=== PATIENT | female | born 1955 | race Caucasian/White ===

== ENCOUNTER → 2016-06-19 | Outpatient (CLI) | payer BC | END | disposition home or self-care (01) ==

== ENCOUNTER 2021-04-12 11:29 | Inpatient (IN) | payer BC, OTHER ==
[2021-04-12] MEDS ORDERED: SODIUM CHLORIDE 0.9% 500 ML 500 ML IV STA (12:16)
[2021-04-12] MEDS ORDERED: DILTIAZEM DRIP BOLUS FROM BAG 1 MG SOLN IV ONE ×2 (12:16→13:47)
[2021-04-12] MEDS ORDERED: HEPARIN SODIUM 1,000 UN/ML (10ML VL) IV ONE (12:16)
--- NOTE | 2021-04-12 12:22 | ED ---
General Adult HPI - General Chief complaint: Shortness of Breath Stated complaint: New Afib/sent by PCP Time Seen by Provider: 04/12/21 11:45 Source: patient, RN notes reviewed, old records reviewed Mode of arrival: wheelchair Limitations: no limitations - History of Present Illness Initial comments: This is a 66-year-old female who presents emergency department stating that she went in for a regular checkup and while she was in her doctor noticed that her heart was racing she didn't EKG and noticed that she was in new onset atrial fibrillation. Patient states that since about how weaned she's been having bouts of difficulty breathing or shortness of breath. Patient states it comes and goes. Patient denies any chest pain. Patient denies feeling any palpitations. Patient denies any fever chills or cough. Patient denies abdominal pain patient denies nausea vomiting diarrhea. - Related Data Home Medications Medication Instructions Recorded Confirmed Doxycycline Hyclate 100 mg PO BID 04/12/21 04/12/21 Fluconazole [Diflucan] 100 mg PO BID 04/12/21 04/12/21 Nystatin 100,000 Unit/gm Powd 1 applic TOPICAL BID 04/12/21 04/12/21 [Mycostatin Powder] Allergies Allergy/AdvReac Type Severity Reaction Status Date / Time cortisone Allergy Unknown Verified 04/12/21 13:17 Sulfa (Sulfonamide AdvReac Nausea Verified 04/12/21 13:17 Antibiotics) Review of Systems ROS Statement: Those systems with pertinent positive or pertinent negative responses have been documented in the HPI. ROS Other: All systems not noted in ROS Statement are negative. Past Medical History Past Medical History: Atrial Fibrillation History of Any Multi-Drug Resistant Organisms: None Reported Past Surgical History: No Surgical Hx Reported Past Psychological History: No Psychological Hx Reported Smoking Status: Never smoker Past Alcohol Use History: None Reported Past Drug Use History: None Reported General Exam - General Exam Comments Initial Comments: GENERAL: Patient is well-developed and well-nourished. Patient is nontoxic and well- hydrated and is in mild distress. ENT: Neck is soft and supple. No significant lymphadenopathy is noted. Oropharynx is clear. Moist mucous membranes. Neck has full range of motion without eliciting any pain. EYES: The sclera were anicteric and conjunctiva were pink and moist. Extraocular movements were intact and pupils were equal round and reactive to light. Eyelids were unremarkable. PULMONARY: Unlabored respirations. Good breath sounds bilaterally. No audible rales rhonchi or wheezing was noted. CARDIOVASCULAR: Patient is tachycardic and irregular at about 160 beats a minute ABDOMEN: Soft and nontender with normal bowel sounds. SKIN: Skin is clear with no lesions or rashes and otherwise unremarkable. NEUROLOGIC: Patient is alert and oriented x3. Cranial nerves II through XII are grossly intact. Motor and sensory are also intact. Normal speech, volume and content. Symmetrical smile. MUSCULOSKELETAL: Normal extremities with adequate strength and full range of motion. No lower extremity swelling or edema. No calf tenderness. LYMPHATICS: No significant lymphadenopathy is noted PSYCHIATRIC: Normal psychiatric evaluation. Limitations: no limitations Course Vital Signs 04/12/21 04/12/21 04/12/21 11:44 12:24 12:57 Temperature 98.7 F Pulse Rate 87 160 H 170 H Respiratory 18 20 20 Rate Blood Pressure 161/131 140/109 133/102 O2 Sat by Pulse 96 98 Oximetry 04/12/21 13:40 Temperature Pulse Rate 140 H Respiratory 20 Rate Blood Pressure 130/85 O2 Sat by Pulse Oximetry Medical Decision Making - Medical Decision Making EKG shows atrial fibrillation with rapid ventricular response at 177 bpm QRS is 98 QT interval is 238 QTC is 408. Patient's EKG shows no ST segment elevation or depression. I started the patient on Cardizem after I gave the patient a Cardizem bolus. Patient's heart rate continued to be about 170 systolic gave a second bolus. Patient's heart rate came down nicely as did her blood pressure. Patient's d-dimer was elevated so we did a CAT scan to rule out PE. I spoke with Dr. Milian agreed to admit the patient admitted the patient I consulted cardiology.patient was also started on heparin and continued on heparin upstairs. - Lab Data Result diagrams: 04/12/21 12:24 04/12/21 12:24 Lab Results 04/12/21 04/12/21 04/12/21 Range/Units 12:24 12:24 12:24 WBC 7.8 (3.8-10.6) k/uL RBC 4.62 (3.80-5.40) m/uL Hgb 13.6 (11.4-16.0) gm/dL Hct 41.9 (34.0-46.0) % MCV 90.7 (80.0-100.0) fL MCH 29.4 (25.0-35.0) pg MCHC 32.4 (31.0-37.0) g/dL RDW 13.1 (11.5-15.5) % Plt Count 276 (150-450) k/uL MPV 8.9 Neutrophils % 71 % Lymphocytes % 22 % Monocytes % 4 % Eosinophils % 1 % Basophils % 0 % Neutrophils # 5.6 (1.3-7.7) k/uL Lymphocytes # 1.7 (1.0-4.8) k/uL Monocytes # 0.3 (0-1.0) k/uL Eosinophils # 0.1 (0-0.7) k/uL Basophils # 0.0 (0-0.2) k/uL PT 11.4 (9.0-12.0) sec INR 1.1 (<1.2) APTT 25.8 (22.0-30.0) sec D-Dimer 1.00 H (<0.60) mg/L FEU Sodium 139 (137-145) mmol/L Potassium 4.5 (3.5-5.1) mmol/L Chloride 108 H (98-107) mmol/L Carbon Dioxide 21 L (22-30) mmol/L Anion Gap 10 mmol/L BUN 16 (7-17) mg/dL Creatinine 0.69 (0.52-1.04) mg/dL Est GFR (CKD-EPI)AfAm >90 (>60 ml/min/1.73 sqM) Est GFR (CKD-EPI)NonAf >90 (>60 ml/min/1.73 sqM) Glucose 142 H (74-99) mg/dL Calcium 9.8 (8.4-10.2) mg/dL Magnesium 1.9 (1.6-2.3) mg/dL Total Bilirubin 0.5 (0.2-1.3) mg/dL AST 41 H (14-36) U/L ALT 55 H (4-34) U/L Alkaline Phosphatase 115 (38-126) U/L Total Protein 7.0 (6.3-8.2) g/dL Albumin 4.0 (3.5-5.0) g/dL TSH 0.330 L (0.465-4.680) mIU/L Critical Care Time Critical Care Time: Yes Total Critical Care Time: 35 Disposition Clinical Impression: Atrial fibrillation with rapid ventricular response Disposition: ADMITTED IP TO THIS HOSP Referrals: Shaniqua Parra MD [Primary Care Provider] - 1-2 days Time of Disposition: 14:16
[2021-04-12 12:43] LABS: Basophils % (A) 0 %; Eosinophils # (A) 0.1 k/uL (0-0.7); Eosinophils % (A) 1 %; HCT 41.9 % (34.0-46.0); HGB 13.6 gm/dL (11.4-16.0); Lymphocytes # (A) 1.7 k/uL (1.0-4.8); Lymphocytes % (A) 22 %; MCH 29.4 pg (25.0-35.0); MCHC 32.4 g/dL (31.0-37.0); MCV 90.7 fL (80.0-100.0); Mean Platelet Volume 8.9; Monocytes # (A) 0.3 k/uL (0-1.0); Monocytes % (A) 4 %; Neutrophils # (A) 5.6 k/uL (1.3-7.7); Neutrophils % (A) 71 %; Platelet Count 276 k/uL (150-450); RBC 4.62 m/uL (3.80-5.40); RDW 13.1 % (11.5-15.5); WBC 7.8 k/uL (3.8-10.6)
--- NOTE | 2021-04-12 12:43 | XR ---
EXAMINATION TYPE: XR chest 2V DATE OF EXAM: 04/12/2021 COMPARISON: Chest x-ray 06/05/2013 HISTORY: Dysrhythmia TECHNIQUE: Frontal and lateral views of the chest are obtained. FINDINGS: Patchy density is present in the bilateral lungs. Cardiac mediastinal silhouette shows a s imilar appearance accounting for expiratory technique, rotation. There is no evident pneumothorax or pleural effusion. There are overlying leads present. Thoracic spondylosis is present. Question some p rominence in interstitium. IMPRESSION: Correlate for possible interstitial edema or pneumonia. Expiratory rotated exam. Follow- up suggested.
[2021-04-12] MEDS: HEPARIN SOD,PORK IN 0.45% NACL 25,000 UNIT in 0.45% NACL 1 250ML.BAG IV SCH (12:51)
[2021-04-12] MEDS: DILTIAZEM 125 MG in SODIUM CHLORIDE 0.9% 100 ML IV SCH (12:56)
[2021-04-12 13:11] LABS: INR 1.1 (<1.2); Partial Thromboplastin Time 25.8 sec (22.0-30.0); Prothrombin Time 11.4 sec (9.0-12.0)
[2021-04-12 13:35] LABS: ALT 55 U/L (4-34); AST 41 U/L (14-36); African American GFR (CKD) >90 (>60 ml/min/1.73 sqM); Alkaline Phosphatase 115 U/L (38-126); Anion Gap 10 mmol/L; Blood Urea Nitrogen 16 mg/dL (7-17); Calcium 9.8 mg/dL (8.4-10.2); Carbon Dioxide 21 mmol/L (22-30); Chloride 108 mmol/L (98-107); Glucose 142 mg/dL (74-99); Magnesium 1.9 mg/dL (1.6-2.3); Non-African American GFR(CKD) >90 (>60 ml/min/1.73 sqM); Potassium 4.5 mmol/L (3.5-5.1); Sodium 139 mmol/L (137-145); Total Bilirubin 0.5 mg/dL (0.2-1.3)
[2021-04-12] MEDS ORDERED: NITROGLYCERIN SL TABS 0.4 MG TAB SUBLINGUAL PRN (14:17)
--- NOTE | 2021-04-12 14:58 | CT ---
EXAMINATION TYPE: CT chest angio for PE DATE OF EXAM: 04/12/2021 COMPARISON: Chest x-ray 04/12/2020 HISTORY: Elevated d-dimer, tachycardia CT DLP: 708.7 mGycm Automated exposure control for dose reduction was used. CONTRAST: CT Chest for pulmonary embolism performed with with IV Contrast, patient injected with 100 mL of Isov ue 370. FINDINGS: LUNGS: There is a coarsened interstitium. There is scattered areas of groundglass opacification. Bila teral pleural effusions are slightly. Additional areas of subsegmental consolidation noted. MEDIASTINUM: There is satisfactory enhancement of the pulmonary artery and its branches, there is no CT evidence for pulmonary embolism. There is pathologic size lymph nodes within the hilum and subcar inal region measuring short axis greater than a centimeter.. The heart is markedly enlarged. Aorta of normal caliber. Trace of pericardial fluid noted. Peribronchial wall thickening. OTHER: Hypertrophic and degenerative change of the spine. Small hiatal hernia. Right-sided partially calcified thyroid nodule. IMPRESSION: 1. Cardiomegaly with coarsened interstitium and ground glass opacification. Small bilateral effusions correlate for mild CHF versus pneumonitis. 2. No diagnostic evidence of pulmonary embolism 3. Peribronchial wall thickening noted bilaterally correlate for bronchitis or interstitial pneumonit is. 4. Nonspecific lymphadenopathy 5. Right-sided thyroid nodules short-term follow-up ultrasound recommended to thyroid.
[2021-04-12 16:27] LABS: Amphetamine Screen,Urine Not Detected (NotDetected); Barbiturate Screen,Urine Not Detected (NotDetected); Benzodiazepines Screen,Urine Not Detected (NotDetected); Cocaine Screen,Urine Not Detected (NotDetected); Methadone Screen, Urine Not Detected (NotDetected); Opiate Screen,Urine Not Detected (NotDetected); Oxycodone Screen, Urine Not Detected (NotDetected); Phencyclidine Screen,Urine Not Detected (NotDetected); Tricyclic Antidepressant,Urine Not Detected (NotDetected); Urn Cannabinoid Scrn Not Detected (NotDetected)
[2021-04-13] MEDS ORDERED: METOPROLOL TARTRATE 50 MG TAB PO SCH (09:00)
[2021-04-13] MEDS ORDERED: ASPIRIN 325 MG TAB PO SCH (09:00)
[2021-04-13] MEDS: HEPARIN SOD,PORK IN 0.45% NACL 25,000 UNIT in 0.45% NACL 1 250ML.BAG IV SCH (09:43)
[2021-04-13 09:47] LABS: Chol/HDL Ratio 3.38 Ratio; VLDL Calculation 16.18 mg/dL (5.00-40.00)
[2021-04-13] MEDS ORDERED: METOPROLOL TARTRATE 25 MG TAB PO STA (10:12)
--- NOTE | 2021-04-13 11:01 | ECHOF ---
Referral Reason:LV function MEASUREMENTS -------- HEIGHT: 162.6 cm WEIGHT: 119.3 kg BP: 131/96 RVIDd: 4.1 cm (< 3.3) IVSd: 1.4 cm (0.6 - 1.1) LVIDd: 5.3 cm (3.9 - 5.3) LVPWd: 1.3 cm (0.6 - 1.1) IVSs: 1.5 cm LVIDs: 3.9 cm LVPWs: 2.0 cm LAESV Index (A-L): 29.88 ml/m Ao Diam: 2.6 cm (2.0 - 3.7) AV Cusp: 2.0 cm (1.5 - 2.6) LA Diam: 5.5 cm (2.7 - 3.8) RAP: 5.00 mmHg RVSP: 42.19 mmHg FINDINGS -------- Atrial fibrillation with RVR. This was a technically difficult study with suboptimal views. The left ventricular size is normal. There is moderate concentric left ventricular hypertrophy. O verall left ventricular systolic function is mildly impaired with, an EF between 45 - 50 %. Left ve ntricular fillimg pressure cannot be estimated due to Atrial fibrillation. The right ventricle is moderately enlarged. The left atrium is markedly dilated. The right atrium is mildly enlarged. 2.0mg of Lumason was utilized for enhancement of images Interatrial and interventricular septum intact. The aortic valve is trileaflet and appears structurally normal. There is no evidence of aortic regu rgitation. There is no evidence of aortic stenosis. Ltvl-[id number]-dvexlqcy mitral regurgitation is present. Moderate to severe tricuspid regurgitation present. There is moderate pulmonary hypertension. The right ventricular systolic pressure, as measured by Doppler, is 42.19mmHg. Trace/mild (physiologic) pulmonic regurgitation. The aortic root size is normal. IVC Not well visulized. There is no pericardial effusion. CONCLUSIONS -------- 1. Atrial fibrillation. 2. The left ventricular size is normal. 3. There is moderate concentric left ventricular hypertrophy. 4. Overall left ventricular systolic function is mildly impaired with, an EF between 45 - 50 %. 5. Left ventricular fillimg pressure cannot be estimated due to Atrial fibrillation. 6. The right ventricle is moderately enlarged. 7. The left atrium is markedly dilated. 8. The right atrium is mildly enlarged. 9. Agxn-cx-lojrcdjx mitral regurgitation is present. 10. Moderate to severe tricuspid regurgitation present. 11. There is moderate pulmonary hypertension. 12. The right ventricular systolic pressure, as measured by Doppler, is 42.19mmHg. 13. Trace/mild (physiologic) pulmonic regurgitation. RAND BUTTER: Lola Carpenter RDCS
--- NOTE | 2021-04-13 11:05 | P.CRDCN ---
History of Present Illness History of present illness: HISTORY OF PRESENTING ILLNESS This is a pleasant 66-year-old female with history of COVID-19 infection August 2019 she recovered and was not hospitalized, (has not been vaccinated), tachycardia about 40 years ago that resolved on its own. 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 We have been asked to see in consultation for new onset atrial fibrillation with rapid ventricular response. Patient presents to the emergency department after seeing her PCP for worsening shortness of breath and was found to be tachycardic. Patient was told to go to the emergency department for further evaluation. She endorses symptoms of worsening shortness of breath. She states her symptoms started around 03/26/21. She states she was getting shortness of breath with any activity, this progressed to her feeling like she could not do any activity without resting. She also endorses bilateral lower extremity edema chest improved. She denies any chest pain, palpitations, lower extremity edema, fatigue, weakness, lightheadedness, syncope or pre-syncope. Denies symptoms of orthopnea or PND. Patient denies history of hypertension, diabetes, stroke, AR, hyperlipidemia, coronary disease. She denies any family history of heart disease. She denies any use of tobacco, alcohol or illicit drug use. She states she was recently started on antibiotics for a rash. DIAGNOSTICS EKG reveals atrial fibrillation with rapid ventricular response, heart rate 177, right axis deviation, incomplete right bundle branch block. No prior EKG to compare. Telemetry tracings indicate atrial fibrillation with uncontrolled ventricular rates, heart rate [id number] Chest xray patchy density in the bilateral lungs. CT chest revealed no pulmonary embolism, cardiomegaly with groundglass opacification. Small bilateral effusions. Right-sided thyroid nodules. Laboratory reviewed, CBC unremarkable, d-dimer 1.0, sodium 139, potassium 4.5, BUN 16, sonogram 0.6, AST 41, PLT 55, troponin negative 3, TSH 0.3, urine tox negative, COVID-19 PCR negative Current home medications include nystatin powder, fluconazole 100mg BID, doxycycline REVIEW OF SYSTEMS At the time of my exam: CONSTITUTIONAL: Denies fever or chills. CARDIOVASCULAR: +shortness of breath Denies shortness of breath, orthopnea, PND or palpitations. RESPIRATORY: Denies cough. GASTROINTESTINAL: Denies abdominal pain, diarrhea, constipation, nausea or vomiting. MUSCULOSKELETAL: Denies myalgias. NEUROLOGIC: Denies numbness, tingling, headacbe or weakness. ENDOCRINE: Denies fatigue, weight change, polydipsia or polyurina. GENITOURINARY: Denies burning, hematuria or urgency with micturation. HEMATOLOGIC: Denies history of anemia or bleeding. PHYSICAL EXAMINATION Vitals BP 131/96, HR 124, afebrile, 98% on room air CONSTITUTIONAL: No apparent distress. HEENT: Head is normocephalic. Pupils are equal, round. Sclerae anicteric. Mucous membranes of the mouth are moist. No JVD. No carotid bruit. CHEST EXAMINATION: Lungs are clear to auscultation. No chest wall tenderness is noted on palpation or with deep breathing. HEART EXAMINATION: Tachycardic Irregular rate and rhythm. S1, S2 heard. No murmurs, gallops or rub. ABDOMEN: Soft, nontender. Positive bowel sounds. EXTREMITIES: 2+ peripheral pulses, trace bilateral lower extremity non-pitting edema and no calf tenderness. SKIN: warm , dry NEUROLOGIC EXAMINATION: Patient is awake, alert and oriented x3. ASSESSMENT New onset paroxysmal atrial fibrillation with RVR -[id number] score 1 History of COVID-19 in August 2019 PLAN -Will start metoprolol tartarte 75mg TID -Wean IV Cardizem -Stop IV heparin, Start Eliquis 5mg BID. Case management consult for Eliquis coverage. Patient's Eliquis is covered for case management with $0 copay. -Continue cardiac telemetry -TSH low, will check Free T4 and Free T3 -Lipid panel reviewed, emphasis on heart healthy lifestyle to reduce risk f actors -Obtain 2D echocardiogram -Further recommendations based on clinical course Nurse Practitioner note has been reviewed, I agree with a documented findings and plan of care. Patient was seen and examined. Past Medical History Past Medical History: Atrial Fibrillation History of Any Multi-Drug Resistant Organisms: None Reported Past Surgical History: No Surgical Hx Reported Past Psychological History: No Psychological Hx Reported Smoking Status: Never smoker Past Alcohol Use History: None Reported Past Drug Use History: None Reported Medications and Allergies Home Medications Medication Instructions Recorded Confirmed Type Doxycycline Hyclate 100 mg PO BID 04/12/21 04/12/21 History Fluconazole [Diflucan] 100 mg PO BID 04/12/21 04/12/21 History Nystatin 100,000 Unit/gm Powd 1 applic TOPICAL BID 04/12/21 04/12/21 History [Mycostatin Powder] Apixaban [Eliquis] 5 mg PO BID 30 Days #60 tab 04/13/21 Rx Allergies Allergy/AdvReac Type Severity Reaction Status Date / Time cortisone Allergy Unknown Verified 04/12/21 13:17 Sulfa (Sulfonamide AdvReac Nausea Verified 04/12/21 13:17 Antibiotics) Physical Exam Vitals: Vital Signs Temp Pulse Pulse Resp BP BP Pulse Ox 04/13/21 03:23 124 H 19 131/96 98 04/13/21 00:00 114 H 19 118/98 98 04/12/21 19:50 98.1 F 134 H 20 107/73 97 04/12/21 17:51 120 H 18 134/64 97 04/12/21 15:47 125 H 16 126/63 96 04/12/21 13:40 140 H 20 130/85 04/12/21 12:57 170 H 20 133/102 04/12/21 12:24 160 H 20 140/109 98 04/12/21 11:44 98.7 F 87 18 161/131 96 Intake and Output 04/12/21 04/13/21 04/13/21 22:59 06:59 14:59 Intake Total 158.016 118.801 Balance 158.016 118.801 Intake: Intake, IV Titration 158.016 118.801 Amount Diltiazem 125 mg In 71.875 20.375 Sodium Chloride 0.9% 100 ml @ 5 MG/HR 5 mls/hr IV .Q24H [facility] Rx#:[id number] Heparin Sod,Pork in 0.45% 86.141 98.426 NaCl 25,000 unit In 0.45 % NaCl 1 250ml.bag @ 8.38 UNITS/KG/HR 9.997 mls/hr IV .Q24H [facility] Rx#: [id number] Other: # Voids 3 Weight 119.295 kg Results 04/12/21 12:24 04/12/21 12:24 Cardiac Enzymes 04/12/21 04/12/21 04/12/21 Range/Units 12:24 12:24 17:07 AST 41 H (14-36) U/L Troponin I <0.012 0.014 (0.000-0.034) ng/mL 04/12/21 Range/Units 19:30 AST (14-36) U/L Troponin I 0.018 (0.000-0.034) ng/mL Coagulation 04/12/21 04/12/21 04/13/21 Range/Units 12:24 20:10 03:34 PT 11.4 (9.0-12.0) sec APTT 25.8 27.8 25.8 (22.0-30.0) sec CBC 04/12/21 Range/Units 12:24 WBC 7.8 (3.8-10.6) k/uL RBC 4.62 (3.80-5.40) m/uL Hgb 13.6 (11.4-16.0) gm/dL Hct 41.9 (34.0-46.0) % Plt Count 276 (150-450) k/uL Comprehensive Metabolic Panel 04/12/21 Range/Units 12:24 Sodium 139 (137-145) mmol/L Potassium 4.5 (3.5-5.1) mmol/L Chloride 108 H (98-107) mmol/L Carbon Dioxide 21 L (22-30) mmol/L BUN 16 (7-17) mg/dL Creatinine 0.69 (0.52-1.04) mg/dL Glucose 142 H (74-99) mg/dL Calcium 9.8 (8.4-10.2) mg/dL AST 41 H (14-36) U/L ALT 55 H (4-34) U/L Alkaline Phosphatase 115 (38-126) U/L Total Protein 7.0 (6.3-8.2) g/dL Albumin 4.0 (3.5-5.0) g/dL Current Medications Generic Name Dose Route Start Last Admin Trade Name Freq PRN Reason Stop Dose Admin Aspirin 325 mg 04/13/21 09:00 Aspirin 325 Mg Tab PO DAILY [facility] Diltiazem HCl 125 mg/ Sodium 125 mls @ 5 mls/hr 04/12/21 12:30 04/13/21 00:43 Chloride IV 10 mg/hr .Q24H [facility] 10 mls/hr Infusion 5 MG/HR Heparin Sodium/Sodium Chloride 250 mls @ 9.997 mls/hr 04/12/21 12:30 04/13/21 04:43 25,000 unit/ Sodium Chloride IV 13.89 units/kg/hr .Q24H [facility] 16.576 mls/hr Titration Protocol 8.38 UNITS/KG/HR Nitroglycerin 0.4 mg 04/12/21 14:17 Nitroglycerin Sl Tabs 0.4 Mg Tab SUBLINGUAL Q5M PRN Chest Pain Intake and Output 04/12/21 04/13/21 04/13/21 22:59 06:59 14:59 Intake Total 158.016 118.801 Balance 158.016 118.801 Intake: Intake, IV Titration 158.016 118.801 Amount Diltiazem 125 mg In 71.875 20.375 Sodium Chloride 0.9% 100 ml @ 5 MG/HR 5 mls/hr IV .Q24H [facility] Rx#:[id number] Heparin Sod,Pork in 0.45% 86.141 98.426 NaCl 25,000 unit In 0.45 % NaCl 1 250ml.bag @ 8.38 UNITS/KG/HR 9.997 mls/hr IV .Q24H [facility] Rx#: [id number] Other: # Voids 3 Weight 119.295 kg 04/12/21 12:24 04/12/21 12:24
[2021-04-13] MEDS: APIXABAN 5 MG TAB PO SCH ×2 (12:05→20:15)
[2021-04-13 13:01] VITALS: RESP 18
[2021-04-13] MEDS: METOPROLOL TARTRATE 25 MG TAB PO SCH ×2 (17:50→20:15)
[2021-04-13] MEDS: DILTIAZEM 125 MG in SODIUM CHLORIDE 0.9% 100 ML IV SCH (20:16)
[2021-04-13] MEDS ORDERED: METOPROLOL TARTRATE 25 MG TAB PO SCH (21:00)
--- NOTE | 2021-04-13 23:37 | P.HPIM ---
History of Present Illness H&P Date: 04/13/21 Chief Complaint: shortness of breath Evelin Tompkins is a 66 yo F with PMH of COVID infection last year who presented to the ED at the recommendation of her PCP after she was noted to be in A fib. She states she had been feeling progressively more short of breath over the past few weeks as well as lower energy levels. She endorses orthopnea, denies cough, chest pain. She brought this up to her PCP and had an EKG done which showed A fib so was recommended to come here. On presentation she was tachycardic, EKG with A fib with RVR. Review of Systems All systems: negative Constitutional: Reports malaise, Denies chills, Denies fever Eyes: denies blurred vision, denies pain Ears, nose, mouth and throat: Denies headache, Denies sore throat Cardiovascular: Reports dyspnea on exertion, Reports palpitations, Denies chest pain, Denies shortness of breath Respiratory: Denies cough Gastrointestinal: Denies abdominal pain, Denies diarrhea, Denies nausea, Denies vomiting Genitourinary: Denies dysuria, Denies hematuria Musculoskeletal: Denies myalgias Integumentary: Denies pruritus, Denies rash Neurological: Denies numbness, Denies weakness Psychiatric: Denies anxiety, Denies depression Endocrine: Denies fatigue, Denies weight change Past Medical History Past Medical History: Atrial Fibrillation History of Any Multi-Drug Resistant Organisms: None Reported Past Surgical History: No Surgical Hx Reported Past Psychological History: No Psychological Hx Reported Smoking Status: Never smoker Past Alcohol Use History: None Reported Past Drug Use History: None Reported Medications and Allergies Home Medications Medication Instructions Recorded Confirmed Type Doxycycline Hyclate 100 mg PO BID 04/12/21 04/12/21 History Fluconazole [Diflucan] 100 mg PO BID 04/12/21 04/12/21 History Nystatin 100,000 Unit/gm Powd 1 applic TOPICAL BID 04/12/21 04/12/21 History [Mycostatin Powder] Apixaban [Eliquis] 5 mg PO BID 30 Days #60 tab 04/13/21 Rx Allergies Allergy/AdvReac Type Severity Reaction Status Date / Time cortisone Allergy Unknown Verified 04/12/21 13:17 Sulfa (Sulfonamide AdvReac Nausea Verified 04/12/21 13:17 Antibiotics) Physical Exam Vitals: Vital Signs Temp Pulse Pulse Resp BP BP Pulse Ox 04/13/21 23:17 98.1 F 79 18 126/85 97 04/13/21 20:00 98.3 F 94 18 129/75 94 L 04/13/21 16:00 120 H 18 144/77 95 04/13/21 14:00 124 H 18 04/13/21 13:01 98.0 F 99 18 101/65 96 04/13/21 03:23 124 H 19 131/96 98 04/13/21 00:00 114 H 19 118/98 98 Intake and Output 04/13/21 04/13/21 04/14/21 14:59 22:59 06:59 Intake Total 93.933 16.5 Balance 93.933 16.5 Intake: Intake, IV Titration 93.933 16.5 Amount Diltiazem 125 mg In 28.5 16.5 Sodium Chloride 0.9% 100 ml @ 5 MG/HR 5 mls/hr IV .Q24H [facility] Rx#:[id number] Heparin Sod,Pork in 0.45% 65.433 NaCl 25,000 unit In 0.45 % NaCl 1 250ml.bag @ 8.38 UNITS/KG/HR 9.997 mls/hr IV .Q24H [facility] Rx#: [id number] Other: Voiding Method Bedside Commode # Voids 2 # Bowel Movements 2 General: well nourished, well developed, NAD. Vitals reviewed Eyes: PERRL, EOMI, conjunctiva normal HENT: normocephalic, mucus membranes moist Neck: supple, no JVD Lungs: normal respiratory effort, no wheezes or rales CV: Tachycardic, irregular. Peripheral pulses 2+ Abdomen: soft, nondistended, no organomegaly Lymph: no cervical or axillary LAD Skin: warm and dry. Neuro: A&Ox3, normal mood and affect Results CBC & Chem 7: 04/12/21 12:24 04/12/21 12:24 Labs: Abnormal Lab Results - Last 24 Hours (Table) 04/13/21 Range/Units 10:38 APTT 32.8 H (22.0-30.0) sec Thrombosis Risk Factor Assmnt - Choose All That Apply Any of the Below Risk Factors Present?: Yes Each Factor Represents 1 point: Obesity (BMI >25) Other Risk Factors: Yes Each Risk Factor Represents 2 Points: Age 61-74 years Other congenital or acquired thrombophilia - If yes, enter type in comment: No Thrombosis Risk Factor Assessment Total Risk Factor Score: 3 Thrombosis Risk Factor Assessment Level: Moderate Risk Assessment and Plan Plan: 1. A fib with RVR. Admit, cardiology consult. start eliquis, metoprolol. Echo per cardiology
[2021-04-14] MEDS: APIXABAN 5 MG TAB PO SCH (08:45)
[2021-04-14] MEDS: METOPROLOL TARTRATE 25 MG TAB PO SCH (08:45)
[2021-04-14 09:51] VITALS: TEMP 98.5
--- NOTE | 2021-04-14 10:48 | P.PN ---
Subjective Progress Note Date: 04/14/21 Evelin Tompkins is a 66 yo F with PMH of COVID infection last year who presented to the ED at the recommendation of her PCP after she was noted to be in A fib. She states she had been feeling progressively more short of breath over the past few weeks as well as lower energy levels. She endorses orthopnea, denies cough, chest pain. She brought this up to her PCP and had an EKG done which showed A fib so was recommended to come here. On presentation she was tachycardic, EKG with A fib with RVR. 04/14/2021 Recently weaned off of Cardizem drip, beta lorie initiated, anticoagulated on Eliquis .telemetry reporting A. fib,CVR, heart rates 90s to low 100s. Echo reported mildly impaired LV function, EF 45-50% mild to moderate mitral regurgitation, moderate to severe tricuspid regurgitation, moderate pulm onary hypertension. Feels significantly better, denies any chest pain palpitations or shortness of breath. Ambulating in room, denies any lightheadedness dizziness or focal deficits. Objective - Vital Signs Vital signs: Vital Signs Temp 97.9 F 04/14/21 03:06 Pulse 92 04/14/21 03:06 Resp 18 04/14/21 03:06 BP 124/80 04/14/21 03:06 Pulse Ox 100 04/14/21 03:06 Intake & Output 04/13/21 04/14/21 04/14/21 18:59 06:59 18:59 Intake Total 93.933 16.5 Balance 93.933 16.5 Weight 121.4 kg Intake: Intake, IV Titration 93.933 16.5 Amount Diltiazem 125 mg In 28.5 16.5 Sodium Chloride 0.9% 100 ml @ 5 MG/HR 5 mls/hr IV .Q24H NIURKA Rx#:[id number] Heparin Sod,Pork in 0.45% 65.433 NaCl 25,000 unit In 0.45 % NaCl 1 250ml.bag @ 8.38 UNITS/KG/HR 9.997 mls/hr IV .Q24H NIURKA Rx#: [id number] Other: Voiding Method Bedside Commode # Voids 2 # Bowel Movements 2 - Exam General: Sitting up in bed, NAD. Vitals reviewed Eyes: PERRL, EOMI, conjunctiva normal HENT: normocephalic, mucus membranes moist Neck: supple, no JVD Lungs: normal respiratory effort, no wheezes or rales CV: irregular, mild tachycardia. Peripheral pulses 2+ Abdomen: soft, nondistended, no organomegaly Skin: warm and dry. Neuro: A&Ox3, no focal deficits. - Labs CBC & Chem 7: 04/12/21 12:24 04/12/21 12:24 Labs: Abnormal Lab Results - Last 24 Hours (Table) 04/13/21 Range/Units 10:38 APTT 32.8 H (22.0-30.0) sec Assessment and Plan Assessment: Afib with RVR, currently controlled ventricular rate Ivcr-hl-jlhztqnc mitral regurgitation Moderate to severe tricuspid regurgitation Moderate pulmonary hypertension Plan: Continue on current medication regime ,monitoring and symptomatic treatment. Maintained on beta lorie with Eliquis initiated for anticoa gulation. Case management verifying Eliquis coverage. Discharge planning in progress pending final DC recommendations and clearance per cardiology. The impression and plan of care has been dictated as directed. : I performed a history and examination of this patient, discussed the same with the dictator. I agree with the dictator's note ,documented as a scribe. Any additional findings or plans will be noted.
--- NOTE | 2021-04-14 11:44 | P.DS ---
Providers Date of admission: 04/12/21 14:17 Expected date of discharge: 04/14/21 Attending physician: Eladio Davison MD Consults: 04/12/21 14:17 Consult Physician Urgent Consulting Provider: [facility] Consult Reason/Comments: A. fib with rapid ventricular response Do you want consulting provider notified?: Yes Primary care physician: Shaniqu[facility] Course: Final Diagnoses: Afib with RVR, currently controlled ventricular rate Rjgi-el-zuzjignb mitral regurgitation Moderate to severe tricuspid regurgitation Moderate pulmonary hypertension Hospital course:Evelin Tompkins is a 66 yo F with PMH of COVID infection last year who presented to the ED at the recommendation of her PCP after she was noted to be in A fib. She states she had been feeling progressively more short of breath over the past few weeks as well as lower energy levels. She endorses orthopnea, denies cough, chest pain. She brought this up to her PCP and had an EKG done which showed A fib so was recommended to come here. On presentation she was tachycardic, EKG with A fib with RVR. 04/14/2021 Recently weaned off of Cardizem drip, beta lorie initiated, anticoagulated on Eliquis .telemetry reporting A. fib,CVR, heart rates 90s to low 100s. Echo reported mildly impaired LV function, EF 45-50% mild to moderate mitral regurgitation, moderate to severe tricuspid regurgitation, moderate pulmonary hypertension. Feels significantly better, denies any chest pain palpitations or shortness of breath. Ambulating in room, denies any lightheadedness dizziness or focal deficits. significant clinical improvement. Cleared by cardiology for discharge. Low- sodium/heart healthy diet reinforced. Patient will be discharged home today in a stable condition with guarded prognosis. The impression and plan of care has been dictated as directed. : I performed a history and examination of this patient, discussed the same with the dictator. I agree with the dictator's note ,documented as a scribe. Any additional findings or plans will be noted. Patient Condition at Discharge: Stable Plan - Discharge Summary Discharge Rx Participant: No New Discharge Prescriptions: New Apixaban [Eliquis] 5 mg PO BID 30 Days #60 tab Famotidine [Pepcid] 20 mg PO BID #60 tablet Metoprolol Tartrate [Lopressor] 75 mg PO TID 30 Days #270 tab Continue Nystatin 100,000 Unit/gm Powd [Mycostatin Powder] 1 applic TOPICAL BID Discontinued Doxycycline Hyclate 100 mg PO BID Fluconazole [Diflucan] 100 mg PO BID Discharge Medication List Nystatin 100,000 Unit/gm Powd [Mycostatin Powder] 1 applic TOPICAL BID 04/12/21 [History] Apixaban [Eliquis] 5 mg PO BID 30 Days #60 tab 04/13/21 [Rx] Famotidine [Pepcid] 20 mg PO BID #60 tablet 04/14/21 [Rx] Metoprolol Tartrate [Lopressor] 75 mg PO TID 30 Days #270 tab 04/14/21 [Rx] Follow up Appointment(s)/Referral(s): Chava Souza MD [STAFF PHYSICIAN] - 2 Weeks Shaniqua Parra MD [Primary Care Provider] - 3 Days Activity/Diet/Wound Care/Special Instructions: Eliquis filled at [facility] - $0 copay diet, heart healthy/low-sodium
--- NOTE | 2021-04-14 12:53 | PN ---
PROGRESS NOTE Mrs. Tompkins is in atrial fib but the rate is much better. She came in with a new onset atrial fibrillation. She is feeling better. She is on a small dose of Cardizem drip. No chest pain, shortness of breath, or palpitations. I am recommending that we discontinue the Cardizem drip, leave her on 75 mg t.i.d. of metoprolol. Echo revealed ejection fraction of about 45% or so. She is on Eliquis ambulating without symptoms. Plan will be to continue current medical regimen and increase activity. Plan for discharge if the heart rate remains good after discontinuing the Cardizem drip. Echo does not reveal any significant valvular disease. She has mild pulmonary hypertension and aortic valve sclerosis and significant dilatation of both atria is noted. Right ventricle is also enlarged. The patient denies any snoring type symptoms. We will optimize rate control, continue anticoagulation and I will see her in the office in 1-2 weeks. To call for any questions, concern or problem. Physical exam revealed no JVD. S1-S2 heard normally with irregular rhythm, short systolic murmur. Clear lungs. Abdomen is soft, nontender. Lower extremities reveal normal pulses. No edema. Central nervous system is normal. MMODL / IJN: [id number] /
[2021-04-14 15:34] VITALS: BP 127/80; PULSE 66
== END 2021-04-14 15:22 | disposition home or self-care (01) | DRG 310 ==
LOC: EC 11:29 → 3SCARD 14:17
PROVIDERS: ADMIT Family Medicine; ATTEND Family Medicine
DX: I48.0 Paroxysmal atrial fibrillation (principal); I27.20 Pulmonary hypertension, unspecified; Z20.822 Contact with and (suspected) exposure to COVID-19; I08.3 Combined rheumatic disorders of mitral, aortic and tricuspid valves; I45.10 Unspecified right bundle-branch block; E04.2 Nontoxic multinodular goiter; Z79.899 Other long term (current) drug therapy; Z86.16 Personal history of COVID-19; Z88.2 Allergy status to sulfonamides; Z88.8 Allergy status to other drugs, medicaments and biological substances
CPT/HCPCS: 36415; 71046; 71275; 80053; 80061; 80306; 83735; 84439; 84443; 84481; 84484; 85025; 85379; 85610; 85730; 87635; 93005; 93306; 96374; 96375; 96376; 99291

== ENCOUNTER → 2021-06-08 | Outpatient (CLI) | payer OTHER ==
[2021-06-08 14:46] LABS: HGB 15.2 g/dL (12.0-15.0); MCV 90.2 fL (80.0-97.0); Mean Platelet Volume 11.9 fL (9.5-12.2); Platelet Count 250 X 10*3/uL (140-440); RBC 5.43 X 10*6/uL (4.10-5.20); WBC 9.18 X 10*3/uL (4.50-10.00)
[2021-06-08 15:41] LABS: African American GFR (CKD) 68.1 (60.0-200.0); Anion Gap 14.1 mmol/L (10.00-18.00); BUN/Creat Ratio 18.32 Ratio (12.00-20.00); Blood Urea Nitrogen 18.5 mg/dL (9.0-27.0); Calcium 9.8 mg/dL (8.7-10.3); Carbon Dioxide 29.3 mmol/L (20.0-27.5); Magnesium 1.9 mg/dL (1.5-2.4); Non-African American GFR(CKD) 58.8 (60.0-200.0); Potassium 3.6 mmol/L (3.5-5.5); T4, Free (Free Thyroxine) 0.85 ng/dL (0.800-1.800)
== END | disposition home or self-care (01) ==
LOC: LABWHC1 08:15
PROVIDERS: ATTEND Internal Medicine Interventional Cardiology
DX: I48.91 Unspecified atrial fibrillation (principal)
CPT/HCPCS: 36415; 80048; 83735; 84439; 84443; 85027

== ENCOUNTER → 2021-06-20 | Outpatient (CLI) | payer OTHER ==
[2021-06-20 22:55] LABS: African American GFR (CKD) 69.8 (60.0-200.0); Anion Gap 10.9 mmol/L (10.00-18.00); BUN/Creat Ratio 14.65 Ratio (12.00-20.00); Blood Urea Nitrogen 14.5 mg/dL (9.0-27.0); Carbon Dioxide 23.4 mmol/L (20.0-27.5); Non-African American GFR(CKD) 60.2 (60.0-200.0); Potassium 4.1 mmol/L (3.5-5.5)
== END | disposition home or self-care (01) ==
LOC: LABWHC1 15:49
PROVIDERS: ATTEND Internal Medicine Interventional Cardiology
DX: I48.91 Unspecified atrial fibrillation (principal)
CPT/HCPCS: 36415; 80048

== ENCOUNTER 2021-06-21 05:45 | Day surgery (SDC) | payer OTHER ==
[2021-06-21] MEDS ORDERED: SODIUM CHLORIDE 0.9% 500 ML 500 ML IV ONE (06:09)
[2021-06-21] MEDS ORDERED: SODIUM CHLORIDE 0.9% 1,000 ML IV SCH ×2 (06:14→07:45)
[2021-06-21 06:31] VITALS: RESP 16; TEMP 98.9
[2021-06-21] MEDS ORDERED: PROPOFOL 10 MG/ML 20 ML VIAL IV ONE (07:05)
[2021-06-21 08:15] VITALS: BP 99/61
[2021-06-21] MEDS ORDERED: SODIUM CHLORIDE 0.9% 1,000 ML IV ONE (08:20)
[2021-06-21] MEDS ORDERED: AMIODARONE 200 MG TAB PO SCH (09:00)
[2021-06-21] MEDS ORDERED: METOPROLOL TARTRATE 25 MG TAB PO SCH (09:00)
[2021-06-21] MEDS ORDERED: FUROSEMIDE 40 MG TAB PO SCH (09:00)
[2021-06-21] MEDS ORDERED: FAMOTIDINE 20 MG TAB PO SCH (09:00)
[2021-06-21] MEDS ORDERED: NON FORMULARY DRUG (Doxycycline Hyclate [Doxycycline Hyclate] 100 MG Tablet) PO SCH (09:00)
[2021-06-21] MEDS ORDERED: NYSTATIN 100,000 UNIT/GM POWD 15 GM TOPICAL SCH (09:00)
[2021-06-21] MEDS ORDERED: APIXABAN 5 MG TAB PO SCH (09:00)
[2021-06-21] MEDS ORDERED: FLUCONAZOLE 100 MG TAB PO SCH (09:00)
[2021-06-21] MEDS ORDERED: POTASSIUM CHLORIDE ER 20 MEQ TAB.ER PO SCH (09:00)
[2021-06-21 10:17] VITALS: PULSE 50
--- NOTE | 2021-06-21 10:59 | PCN ---
PROCEDURE NOTE ELECTRICAL CARDIOVERSION REPORT: DATE OF SERVICE: 06/21/2021. PROCEDURE: Electrical cardioversion. INDICATION: Persistent symptomatic atrial fibrillation. CLINICAL INFORMATION: Mrs. Evelin Tompkins is a 66-year-old lady with relatively recent-onset atrial fibrillation, symptomatic, persistent in spite of pharmacological efforts. She was adequately anticoagulated and brought in for the procedure electively after due discussion regarding risks, benefits and options. PROCEDURE NOTE: Under the influence of [id number]-yxkjrr intravenous anesthetic agent with the attendance of the anesthesiologist, a single shock was delivered with anterior and posterior patches of 200 joules in a synchronized fashion. She converted to sinus rhythm, remained hemodynamically stable and neurologically intact. This was a successful electrical cardioversion. Results were discussed with the patient. No family was available. I will speak to her later on. She will be discharged today, and I will see her in the office in about one week. MMODL / GENON: [id number] /
== END 2021-06-21 10:07 | disposition home or self-care (01) ==
LOC: CATHCVL 05:45
PROVIDERS: ATTEND Internal Medicine Interventional Cardiology
DX: I48.11 Longstanding persistent atrial fibrillation (principal); I48.19 Other persistent atrial fibrillation; I10 Essential (primary) hypertension; I27.20 Pulmonary hypertension, unspecified; E66.01 Morbid (severe) obesity due to excess calories; Z68.42 Body mass index [BMI] 45.0-49.9, adult; Z20.822 Contact with and (suspected) exposure to COVID-19; T50.1X6A Underdosing of loop [high-ceiling] diuretics, initial encounter; T50.2X6A Underdosing of carbonic-anhydrase inhibitors, benzothiadiazides and other diuretics, initial encounter; Z91.128 Patient's intentional underdosing of medication regimen for other reason; Z79.01 Long term (current) use of anticoagulants; Z79.899 Other long term (current) drug therapy; Z88.2 Allergy status to sulfonamides; Z88.8 Allergy status to other drugs, medicaments and biological substances
CPT/HCPCS: 92960; 87635; J2704; 93005

== ENCOUNTER 2022-12-02 09:17 | Emergency (ER) | payer MEDICARE, OTHER ==
[2022-12-02 09:24] VITALS: RESP 18; TEMP 99.3
[2022-12-02] MEDS ORDERED: HYDROcodone/APAP 5-325MG 1 EACH TAB PO STA (09:46)
[2022-12-02] MEDS ORDERED: PENICILLIN V POTASSIUM 250 MG TAB PO STA (09:48)
[2022-12-02] MEDS ORDERED: ACET/COD 300 MG/30 MG STARTER PACK 6 TAB BTL PO STA (09:51)
--- NOTE | 2022-12-02 09:51 | ED ---
ENT HPI - General Chief complaint: Dental/Oral Stated complaint: Dental Pain Time Seen by Provider: 12/02/22 09:35 Source: patient, family Mode of arrival: ambulatory Limitations: no limitations - History of Present Illness Initial comments: Patient presents with left lower dental pain for 2 days. Unable to get into her dentist. Denies any fevers. Does have history of atrial fibrillation and taking eliquis. complaint: tooth pain (18) -: days(s) Severity scale (1-10): 10 Consistency: constant Improves with: none Associated Symptoms: toothache - Related Data Home Medications Medication Instructions Recorded Confirmed Nystatin 100,000 Unit/gm Powd 1 applic TOPICAL BID 04/12/21 06/21/21 [Mycostatin Powder] Doxycycline Hyclate 100 mg PO BID 06/21/21 06/21/21 Fluconazole [Diflucan] 100 mg PO DAILY 06/21/21 06/21/21 Furosemide [Lasix] 40 mg PO DAILY 06/21/21 06/21/21 Potassium Chloride ER [K-Dur 20] 20 meq PO DAILY 06/21/21 06/21/21 Previous Rx's Medication Instructions Recorded Apixaban [Eliquis] 5 mg PO BID 30 Days #60 tab 04/13/21 Famotidine [Pepcid] 20 mg PO BID #60 tablet 04/14/21 Amiodarone [Cordarone] 200 mg PO DAILY #0 06/21/21 Metoprolol Tartrate [Lopressor] 75 mg PO BID 30 Days #270 tab 06/21/21 Penicillin V Potassium [Pen Vee K] 500 mg PO QID 10 Days #40 tablet 12/02/22 Allergies Allergy/AdvReac Type Severity Reaction Status Date / Time cortisone Allergy Unknown Verified 12/02/22 09:24 Sulfa (Sulfonamide AdvReac Nausea Verified 12/02/22 09:24 Antibiotics) Review of Systems ROS Statement: Those systems with pertinent positive or pertinent negative responses have been documented in the HPI. ROS Other: All systems not noted in ROS Statement are negative. Past Medical History Past Medical History: Atrial Fibrillation History of Any Multi-Drug Resistant Organisms: None Reported Past Surgical History: No Surgical Hx Reported Past Psychological History: No Psychological Hx Reported Smoking Status: Never smoker Past Alcohol Use History: None Reported Past Drug Use History: None Reported General Exam Limitations: no limitations General appearance: alert, in no apparent distress Head exam: Present: atraumatic Eye exam: Present: normal appearance. Absent: scleral icterus, conjunctival injection, periorbital swelling ENT exam: Present: normal oropharynx, mucous membranes moist Expanded Mouth exam: Present: tongue normal, tongue elevation. Absent: drooling, trismus, muffled voice Teeth exam: Present: dental tenderness # (18), other (No evidence of drainable abscess). Absent: gingival enlargement Throat exam: negative: tonsillar erythema Respiratory exam: Absent: respiratory distress, accessory muscle use Cardiovascular Exam: Present: regular rate Extremities exam: Present: normal capillary refill Neurological exam: Present: alert, oriented X3, normal gait Psychiatric exam: Present: normal affect, normal mood Skin exam: Present: warm, dry, normal color. Absent: cyanosis, diaphoretic, pallor Course Vital Signs 12/02/22 12/02/22 09:22 10:22 Temperature 99.3 F Pulse Rate 80 78 Respiratory 18 18 Rate Blood Pressure 190/81 134/78 O2 Sat by Pulse 98 99 Oximetry Medical Decision Making - Medical Decision Making Was pt. sent in by a medical professional or institution (Dr. PA, [facility] [employer] [employer], urgent care, hospital, or fpc...) When possible be specific @ -No Did you speak to anyone other than the patient for history (EMS, parent, family, police, friend...)? What history was obtained from this source @ -No Did you review nursing and triage notes (agree or disagree)? Why? @ -I reviewed and agree with nursing and triage notes Were old charts reviewed (outside hosp., previous admission, EMS record, old EKG, old radiological studies, urgent care reports/EKG's, fpc records)? Report findings @ -No old charts were reviewed Differential Diagnosis (chest pain, altered mental status, abdominal pain women, abdominal pain men, vaginal bleeding, weakness, fever, dyspnea, syncope, hea dache, dizziness, GI bleed, back pain, seizure, CVA, palpatations, mental health, musculoskeletal)? @ -Dental abscess, dental caries, dental fracture this is not an all inclusive list EKG interpreted by me (3pts min.). @ -n/a X-rays interpreted by me (1pt min.). @ -None done CT interpreted by me (1pt min.). @ -None done U/S interpreted by me (1pt. min.). @ -None done What testing was considered but not performed or refused? (CT, X-rays, U/S, labs)? Why? @ -None What meds were considered but not given or refused? Why? @ -None Did you discuss the management of the patient with other professionals (professionals i.e. Dr., PA, [facility] [employer] [employer], lab, RT, psych nurse, long term care social worker, requirements manager, teacher, donor relations officer, rehabilitation case coordinator)? Give summary @ -No Was smoking cessation discussed for >3mins.? @ -No Was critical care preformed (if so, how long)? @ -No Were there social determinants of health that impacted care today? How? (Homelessness, low income, unemployed, alcoholism, drug addiction, transportation, low edu. Level, literacy, decrease access to med. care, retirement, rehab)? @ -No Was there de-escalation of care discussed even if they declined (Discuss DNR or withdrawal of care, Hospice)? DNR status @ -No What co-morbidities impacted this encounter? (DM, HTN, Smoking, COPD, CAD, Cancer, CVA, ARF, Chemo, Hep., AIDS, mental health diagnosis, sleep apnea, morbid obesity)? @ -Atrial fibrillation, HTN Was patient admitted / discharged? Hospital course, mention meds given and route, prescriptions, significant lab abnormalities, going to OR and other pertinent info. @ -Discharged Patient presents with left lower dental pain for 2 days. Unable to get into her dentist. Denies any fevers. Does have history of atrial fibrillation and taking eliquis. On physical examination no evidence of drainable abscess. Tenderness around tooth 18. No gingival enlargement. Patient was given dose of penicillin and Blacklick in the emergency room. Tylenol 3 starter pack provided. Patient was prescribed penicillin. Direct to follow-up with her dentist next week. Case discussed with Dr. Barajas. Undiagnosed new problem with uncertain prognosis? @ -No Drug Therapy requiring intensive monitoring for toxicity (Heparin, Nitro, Insulin, Cardizem)? @ -No Were any procedures done? @ -No Diagnosis/symptom? @ -Dental abscess Acute, or Chronic, or Acute on Chronic? @ -Acute Uncomplicated (without systemic symptoms) or Complicated (systemic symptoms)? @ -Uncomplicated Side effects of treatment? @ -No Exacerbation, Progression, or Severe Exacerbation? @ -No Poses a threat to life or bodily function? How? (Chest pain, [place], [place], pneumonia, PE, COPD, DKA, ARF, appy, cholecystitis, CVA, Diverticulitis, Homicidal, Suicidal, threat to staff... and all critical care pts) @ -No Disposition Clinical Impression: Dental abscess Disposition: HOME SELF-CARE Condition: Good Instructions (If sedation given, give patient instructions): Dental Abscess (ED) Additional Instructions: Follow-up with your dentist next week. Return to the emergency room with any nor concerning symptoms including persistent nausea vomiting, increased pain or swelling. Prescriptions: Penicillin V Potassium [Pen Vee K] 500 mg PO QID 10 Days #40 tablet Is patient prescribed a controlled substance at d/c from ED?: No Referrals: Shaniqua Parra MD [Primary Care Provider] - 1-2 days Time of Disposition: 09:50
[2022-12-02 10:24] VITALS: BP 134/78; PULSE 78
== END 2022-12-02 10:24 | disposition home or self-care (01) ==
LOC: EC 09:17
DX: K04.7 Periapical abscess without sinus (principal); I48.91 Unspecified atrial fibrillation; Z79.01 Long term (current) use of anticoagulants; Z88.1 Allergy status to other antibiotic agents; Z88.2 Allergy status to sulfonamides
CPT/HCPCS: 99283

== ENCOUNTER 2023-05-16 22:16 | Emergency (ER) | payer MEDICARE, OTHER ==
[2023-05-17] MEDS ORDERED: AMOXIC-POT CLAV 875-125MG 1 EACH TAB PO STA (01:09)
[2023-05-17] MEDS ORDERED: KETOROLAC 15 MG/ML 1 ML VIAL IM STA (01:09)
[2023-05-17 01:10] VITALS: BP 109/86; PULSE 76; RESP 18
--- NOTE | 2023-05-17 01:16 | ED ---
ENT HPI - General Chief complaint: Dental/Oral Stated complaint: Dental pain Time Seen by Provider: 05/16/23 22:31 Source: patient Mode of arrival: ambulatory Limitations: no limitations - History of Present Illness Initial comments: 68-year-old female presenting with chief complaint of dental pain. Pain is located on the left upper side. Patient has known dental caries to this area. She admits to some pain and swelling. No difficulty swallowing. Patient states that she does have some mild shortness of breath with laying flat, she is currently on Lasix but states that she is not adherent. She is having some lower extremity swelling. No chest pain. No stridor. No cough, fever, voice changes, drooling. - Related Data Home Medications Medication Instructions Recorded Confirmed Nystatin 100,000 Unit/gm Powd 1 applic TOPICAL BID 04/12/21 06/21/21 [Mycostatin Powder] Doxycycline Hyclate 100 mg PO BID 06/21/21 06/21/21 Fluconazole [Diflucan] 100 mg PO DAILY 06/21/21 06/21/21 Furosemide [Lasix] 40 mg PO DAILY 06/21/21 06/21/21 Potassium Chloride ER [K-Dur 20] 20 meq PO DAILY 06/21/21 06/21/21 Previous Rx's Medication Instructions Recorded Apixaban [Eliquis] 5 mg PO BID 30 Days #60 tab 04/13/21 Famotidine [Pepcid] 20 mg PO BID #60 tablet 04/14/21 Amiodarone [Cordarone] 200 mg PO DAILY #0 06/21/21 Metoprolol Tartrate [Lopressor] 75 mg PO BID 30 Days #270 tab 06/21/21 Penicillin V Potassium [Pen Vee K] 500 mg PO QID 10 Days #40 tablet 12/02/22 Amoxic-Pot Clav 875-125Mg 1 tab PO Q12HR 7 Days #14 tab 05/17/23 [Augmentin 875-125] Allergies Allergy/AdvReac Type Severity Reaction Status Date / Time cortisone Allergy Unknown Verified 12/02/22 09:24 Sulfa (Sulfonamide AdvReac Nausea Verified 12/02/22 09:24 Antibiotics) Review of Systems ROS Statement: Those systems with pertinent positive or pertinent negative responses have been documented in the HPI. ROS Other: All systems not noted in ROS Statement are negative. Past Medical History Past Medical History: Atrial Fibrillation History of Any Multi-Drug Resistant Organisms: None Reported Past Surgical History: No Surgical Hx Reported Past Psychological History: No Psychological Hx Reported Smoking Status: Never smoker Past Alcohol Use History: None Reported Past Drug Use History: None Reported General Exam Limitations: no limitations General appearance: alert, in no apparent distress Head exam: Present: atraumatic, normocephalic Eye exam: Present: normal appearance Expanded Mouth exam: Present: normal external inspection, tongue normal. Absent: drooling, trismus, muffled voice Teeth exam: Present: dental caries, fractured tooth #, dental tenderness # Throat exam: normal inspection Neck exam: Present: normal inspection, full ROM. Absent: tenderness Respiratory exam: Present: normal lung sounds bilaterally. Absent: respiratory distress, wheezes, rales, rhonchi, stridor Cardiovascular Exam: Present: regular rate, normal rhythm, normal heart sounds. Absent: systolic murmur, diastolic murmur, rubs, gallop, clicks Extremities exam: Present: pedal edema Neurological exam: Present: alert, oriented X3 Psychiatric exam: Present: normal affect, normal mood Skin exam: Present: warm, dry Course Vital Signs 05/16/23 05/17/23 05/17/23 22:17 00:27 01:30 Temperature 98.4 F 98.3 F Pulse Rate 75 76 Respiratory 16 18 Rate Blood Pressure 179/84 109/86 O2 Sat by Pulse 97 96 Oximetry Medical Decision Making - Medical Decision Making Was pt. sent in by a medical professional or institution (Dr. PA, DIRECTOR OF ACADEMIC, urgent care, hospital, or [facility]...) When possible be specific @ -No Did you speak to anyone other than the patient for history (EMS, parent, family, police, friend...)? What history was obtained from this source @ -No Did you review nursing and triage notes (agree or disagree)? Why? @ -I reviewed and agree with nursing and triage notes Were old charts reviewed (outside hosp., previous admission, EMS record, old EKG, old radiological studies, urgent care reports/EKG's, [facility] records)? Report findings @ -No old charts were reviewed Differential Diagnosis (chest pain, altered mental status, abdominal pain women, abdominal pain men, vaginal bleeding, weakness, fever, dyspnea, syncope, headache, dizziness, GI bleed, back pain, seizure, CVA, palpatations, mental health, musculoskeletal)? @ -Differential includes dental abscess, dental pain, Nathan angina, this is not an all inclusive list EKG interpreted by me (3pts min.). @ -As above X-rays interpreted by me (1pt min.). @ -Chest x-ray was performed and report is pending. My interpretation there does appear to be some cardiomegaly CT interpreted by me (1pt min.). @ -None done U/S interpreted by me (1pt. min.). @ -None done What testing was considered but not performed or refused? (CT, X-rays, U/S, labs)? Why? @ -None What meds were considered but not given or refused? Why? @ -None Did you discuss the management of the patient with other professionals (professionals i.e. , PA, DIRECTOR OF ACADEMIC, lab, RT, psych nurse, dialysis social worker, editor managing director, teacher, co founder and chief strategy officer, case work aide)? Give summary @ -No Was smoking cessation discussed for >3mins.? @ -No Was critical care preformed (if so, how long)? @ -No Were there social determinants of health that impacted care today? How? (Homelessness, low income, unemployed, alcoholism, drug addiction, transportatio n, low edu. Level, literacy, decrease access to med. care, prison, rehab)? @ -No Was there de-escalation of care discussed even if they declined (Discuss DNR or withdrawal of care, Hospice)? DNR status @ -No What co-morbidities impacted this encounter? (DM, HTN, Smoking, COPD, CAD, Cancer, CVA, ARF, Chemo, Hep., AIDS, mental health diagnosis, sleep apnea, morbid obesity)? @ -None Was patient admitted / discharged? Hospital course, mention meds given and route, prescriptions, significant lab abnormalities, going to OR and other pertinent info. @ -68-year-old female presenting with chief complaint of dental pain. On exam there are multiple dental caries, no obvious drainable abscess. Patient will be started on Augmentin. Patient states that she has had some shortness of breath on laying flat, patient has no drooling, voice changes, stridor, or difficulty swallowing. No midline shift noted on exam and no brawny induration. Patient does have some lower extremity edema and reports that she is not compliant with her Lasix. Seems more likely to be due to fluid accumulation. Chest x-ray is performed. Patient reports that she does not want to wait for the results and does not want blood work. She is of sound mind and body make her own decisions. I informed the patient that she needs to be compliant with her Lasix in order to prevent a CHF exacerbation. She will follow up with her PCP. Follow-up with PCP. Report back to ER with any new or worsening symptoms. Discussed return parameters and answered all questions. Patient conveyed verbal understanding and agreed to the plan. I discussed this case in detail with my attending Dr. Villasenor Undiagnosed new problem with uncertain prognosis? @ -No Drug Therapy requiring intensive monitoring for toxicity (Heparin, Nitro, Insulin, Cardizem)? @ -No Were any procedures done? @ -No Diagnosis/symptom? @ -Dental abscess Acute, or Chronic, or Acute on Chronic? @ -Acute Uncomplicated (without systemic symptoms) or Complicated (systemic symptoms)? @ -Uncomplicated Side effects of treatment? @ -No Exacerbation, Progression, or Severe Exacerbation? @ -No Poses a threat to life or bodily function? How? (Chest pain, [place], [place], pneumonia, PE, COPD, DKA, ARF, appy, cholecystitis, CVA, Diverticulitis, Homicidal, Suicidal, threat to staff... and all critical care pts) @ -No Disposition Clinical Impression: Dental abscess Disposition: HOME SELF-CARE Condition: Good Instructions (If sedation given, give patient instructions): Dental Abscess (ED) Additional Instructions: Follow-up with PCP. Report back to ER with any new or worsening symptoms. Follow-up with your dentist. Take your water pill as prescribed. Prescriptions: Amoxic-Pot Clav 875-125Mg [Augmentin 875-125] 1 tab PO Q12HR 7 Days #14 tab Is patient prescribed a controlled substance at d/c from ED?: No Referrals: Eladio Davison MD [Primary Care Provider] - 1-2 days Time of Disposition: 01:16
[2023-05-17 01:38] VITALS: TEMP 98.3
--- NOTE | 2023-05-17 07:45 | XR ---
EXAMINATION TYPE: XR chest 2V DATE OF EXAM: 05/16/2023 COMPARISON: 04/12/2021 HISTORY: 68-year-old female with shortness of breath TECHNIQUE: PA and lateral views FINDINGS: Heart borderline enlarged. Interstitial/vascular prominence is similar. Some strandy atelectasis in t he lower lungs. Accentuated lower thoracic kyphosis. No consolidation or pleural effusion. IMPRESSION: Borderline cardiomegaly and possible mild pulmonary vascular congestion. No gene pulmonary edema or focal infiltrate seen.
== END 2023-05-17 01:31 | disposition home or self-care (01) ==
LOC: EC 22:16
DX: K04.7 Periapical abscess without sinus (principal); I48.91 Unspecified atrial fibrillation; Z88.2 Allergy status to sulfonamides; Z88.8 Allergy status to other drugs, medicaments and biological substances; Z79.899 Other long term (current) drug therapy
CPT/HCPCS: 71046; 99283; 96372; J1885

== ENCOUNTER → 2024-08-27 | Outpatient (CLI) | payer MEDICARE, OTHER ==
[2024-08-27 11:03] LABS: BUN/Creat Ratio 17.43 Ratio (12.00-20.00); Blood Urea Nitrogen 12.2 mg/dL (9.0-27.0); Calcium 9.1 mg/dL (8.7-10.3); Carbon Dioxide 23.7 mmol/L (21.6-31.8); Chloride 107 mmol/L (96-109); Glucose 134 mg/dL (70-110); Potassium 4.1 mmol/L (3.5-5.5); Sodium 143 mmol/L (135-145)
== END | disposition home or self-care (01) ==
LOC: LABWHC1 08:01
PROVIDERS: ATTEND Internal Medicine Interventional Cardiology
DX: I48.91 Unspecified atrial fibrillation (principal)
CPT/HCPCS: 36415; 80048; 84439; 84443